=== PATIENT | male | born 1950 | race Caucasian/White ===

== ENCOUNTER 2021-06-30 18:20 | Emergency (ER) | payer MEDICARE, OTHER ==
[2021-06-30] MEDS ORDERED: NAPROXEN500 MG PO (22:28)
== END 2021-07-01 00:30 | disposition home or self-care (01) ==
LOC: ER1 18:20
DX: S42.211A Unspecified displaced fracture of surgical neck of right humerus, initial encounter for closed fracture (principal); S42.251A Displaced fracture of greater tuberosity of right humerus, initial encounter for closed fracture; I10 Essential (primary) hypertension; Z88.0 Allergy status to penicillin; Z79.899 Other long term (current) drug therapy; W01.0XXA Fall on same level from slipping, tripping and stumbling without subsequent striking against object, initial encounter; Y92.009 Unspecified place in unspecified non-institutional (private) residence as the place of occurrence of the external cause
CPT/HCPCS: 73030; 73060; 73200; 96374; 96375; 96376; 99284; J2270; J2405